=== PATIENT | female | born 2000 | race African-American/Black ===

== ENCOUNTER 2022-10-18 19:39 | Emergency (ER) | payer BC, OTHER ==
[2022-10-18 20:59] LABS: SARS-CoV-2 NAA Rapid Test Not Detected (NotDetected)
== END 2022-10-18 21:27 | disposition home or self-care (01) ==
LOC: ERS 19:39
DX: B34.9 Viral infection, unspecified (principal); Z20.822 Contact with and (suspected) exposure to COVID-19
CPT/HCPCS: 99283